=== PATIENT | male | born 1995 ===

== ENCOUNTER 2017-05-20 09:57 | Emergency (ER) | payer SELFPAY ==
[2017-05-20 10:11] VITALS: TEMP 98.3
--- NOTE | 2017-05-20 11:38 | C.PDOC ---
History Of Present Illness 22-year-old male, presents to the emergency department with complaints of fall. Patient states he fell down the stairs prior to arrival. Patient states he injured the left fourth finger. Denies other injuries, numbness/weakness. Of note, patient is right hand dominant. Time Seen by Provider: 05/20/17 11:24 Chief Complaint (Nursing): Finger,Hand,&Wrist History Per: Patient History/Exam Limitations: no limitations Onset/Duration Of Symptoms: Other (prior to arrival) Past Medical History Reviewed: Historical Data, Nursing Documentation, Vital Signs Vital Signs: Last Vital Signs Temp 98.3 F 05/20/17 10:08 Pulse 89 05/20/17 10:08 Resp 18 05/20/17 10:08 BP 116/74 05/20/17 10:08 Pulse Ox 98 05/20/17 11:43 Family History: States: No Known Family Hx - Social History Hx Alcohol Use: No Hx Substance Use: No - Immunization History Hx Tetanus Toxoid Vaccination: No Hx Influenza Vaccination: No Hx Pneumococcal Vaccination: No Review Of Systems Respiratory: Negative for: Shortness of Breath Gastrointestinal: Negative for: Vomiting Musculoskeletal: Positive for: Other (left fourth finger) Neurological: Negative for: Weakness, Numbness Physical Exam - Physical Exam Appears: Non-toxic, No Acute Distress Skin: Warm, Dry, No Rash Head: Atraumatic, Normacephalic Neck: Normal ROM Extremity: Tenderness, Capillary Refill (<2 seconds), No Deformity, Swelling, Other ((+) swelling and tenderness to proximal left fourth digit. ) Pulses: Right Radial: Normal, Left Femoral: Normal Neurological/Psych: Oriented x3, Normal Speech ED Course And Treatment O2 Sat by Pulse Oximetry: 98 Medical Decision Making Medical Decision Making: Xrays shows (+) minimally displaced proximal 4th phalanx fracture. Finger splint was applied by Jose Juan Abbasi. Disposition - Disposition Referrals: Marixa Rojo MD [Staff Provider] - Disposition: HOME/ ROUTINE Disposition Time: 11:39 Condition: GOOD Additional Instructions: Follow up with the Hand doctor within 3-5 days without fail. Return if worsened. Prescriptions: Acetaminophen [Tylenol] 325 mg PO Q6 PRN #30 tab PRN Reason: Pain, Mild (1-3) traMADol [Ultram] 50 mg PO Q6 PRN #15 tab PRN Reason: Pain Instructions: Finger Fracture (ED) Forms: [facility] (Ukrainian) - Clinical Impression Clinical Impression: Finger fracture - Scribe Statement The provider has reviewed the documentation as recorded by the Scribe (Charley Hines) All medical record entries made by the Scribe were at my direction and personally dictated by me. I have reviewed the chart and agree that the record accurately reflects my personal performance of the history, physical exam, medical decision making, and the department course for this patient. I have also personally directed, reviewed, and agree with the discharge instructions and disposition.
[2017-05-20 12:09] VITALS: BP 110/70; PULSE 78; RESP 20; O2SAT 100
--- NOTE | 2017-05-20 12:34 | RAD ---
PROCEDURE: Left ring finger radiographs. HISTORY: R/O Fx COMPARISON: None available. TECHNIQUE: AP radiograph of the left hand, as well as spot oblique and lateral images of left ring finger were obtained. FINDINGS: LEFT RING FINGER: Left ring finger left 4th digit demonstrates oblique displaced comminuted fracture of the proximal 4th phalanx with associated soft tissue swelling. Remainder of the left hand (as seen on the AP view) is grossly unremarkable. JOINTS: No dislocation. SOFT TISSUES: Soft tissue swelling. No evidence of radiopaque foreign body. OTHER FINDINGS: None. IMPRESSION: Oblique displaced comminuted fracture of the proximal 4th phalanx with associated soft tissue swelling.
== END 2017-05-20 12:09 | disposition home or self-care (01) ==
LOC: C.ER 09:57
DX: S62.615A Displaced fracture of proximal phalanx of left ring finger, initial encounter for closed fracture (principal); W10.8XXA Fall (on) (from) other stairs and steps, initial encounter; Y92.9 Unspecified place or not applicable